=== PATIENT | female | born 1955 | race Caucasian/White ===

== ENCOUNTER 2024-11-10 15:26 | Emergency (ER) | payer OTHER, SELFPAY ==
[2024-11-10 15:37] VITALS: BP 213/116
--- NOTE | 2024-11-10 19:32 | ED.MUSCINJ ---
HPI-Injury
General
Chief Complaint: Musculo-Skeletal Complaint
Source: patient
Exam Limitations: none
Time Seen by Provider: 11/10/24 18:51
History of Present Illness-Injury
Initial Injury comments:
68-year-old female presents complaining of worsening right heel pain over the past 2 weeks. She states it started as dry cracked skin which she was treating with antibacterial ointment. This seemed to resolve however over the past several days she
has noticed increased pain. She has been treating a different wound to the medial ankle as well. She is healthy and does not take any medications. She is not a diabetic. No fevers or vomiting. No other complaints
Phy Exam
Physical Exam
Physical Exam:
General: Well-appearing female no acute respiratory distress
HEENT: Normocephalic atraumatic
Skin: Subtle erythema to the medial right ankle with healing wound in this area. The heel is slightly tender vascular: 2+ DP pulse
Right foot neurologic: Good sensation right
Foot
Injury Course
Orders/Labs/Results
Orders:
Orders
11/10/24 19:04
CR Heel/os Calcis - Right 2 Vw Urgent
Comment:
Reason For Exam: pain
11/10/24 21:05
Cephalexin Monohydrate [Keflex] 500 mg PO NOW STA
*Pulse Oximetry
SaO2: 95
Oxygen Mode of Delivery: Room air
Patient hypoxic: no
*Critical Care Note
Total Time (30-74mins, 75-104mins- exclusive of procedures): Not Applicable
Update Note
Update Note:
X-ray negative for bony abnormality but does show subcutaneous edema. Concerning for possible cellulitis. Otherwise nontoxic. Will start on Keflex. Advise follow-up with family
ED Attending Note
-
Portions of this chart may have been created with voice recognition software.� Occasional wrong word or��sound alike� substitutions may have occurred due to the inherent limitations of voice recognition software.
Discharge Plan
Departure
Patient Disposition: Home (Routine Discharge)
Date of Disposition: 11/10/24
Time of Disposition: 22:32
Patient with high blood pressure during this ER visit?: No
Discharge Problem:
Cellulitis
Instructions: Cellulitis (skin infection) in adults - ED discharge instructions
Prescriptions:
New
cephalexin 500 mg capsule
500 mg PO QID 7 Days Qty: 28 0RF
Referrals:
NONE,* [Family Provider, Internal Medicine]
Activity Restrictions/Additional Instructions:
Take antibiotics as directed. Elevate for swelling. Return if worse otherwise follow-up with your doctor
Interventions
Interventions:
*Risk Screen - Suicide Last Done: 11/10/24 15:37
*General Assessment Last Done: 11/10/24 15:37
*Neglect/Abuse Screening Last Done: 11/10/24 15:37
*ED- Fall Risk Assessment Last Done: 11/10/24 21:28
*ED COVID-19 Vaccine History Last Done: 11/10/24 21:28
ED-Musculoskeletal Assessment Last Done: 11/10/24 21:28
Discharge Date and Time
Print Language: ARMENIAN
[2024-11-10] MEDS: KEFLEX 500 MG PO (21:22)
[2024-11-10 21:25] VITALS: BMI 32.7
[2024-11-10 22:29] VITALS: BP 178/74
== END 2024-11-10 23:25 | disposition home or self-care (01) ==
LOC: EMR 15:26
PROVIDERS: EMERGENCY PHYSICIAN Emergency Medicine
DX: L03.115 Cellulitis of right lower limb (principal)
CPT/HCPCS: 99283; 73650